=== PATIENT | male | born 1980 | race Caucasian/White ===

== ENCOUNTER 2017-05-05 09:20 | Inpatient (IN) | payer OTHER ==
[~2017-05-05] VITALS: Ht 177.8 cm; Wt 87.0 kg
[2017-05-05] MEDS ORDERED: MoRPHine SULFATE 4 MG/ML 1 ML CARP\\VIAL IV STA (09:46)
[2017-05-05] MEDS ORDERED: SODIUM CHLORIDE 0.9% 1000ML 1,000 ML IV STA ×2 (09:46)
[2017-05-05] MEDS ORDERED: ONDANSETRON INJ 2 MG/ML 2 ML VIAL IV STA (09:46)
[2017-05-05 09:57] LABS: BASO % 0.4 %; BASO ABS # 0.03 K/uL (0-0.2); COMPLETE YES; EOS % 1.8 %; HEMATOCRIT 44.2 % (42-52); IG% 0.4 %; LYMPH % 31.8 %; LYMPH ABS # 2.51 K/uL (1.2-3.4); MEAN CELL VOLUME 88.4 fL (80-100); MEAN CORPUSCULAR HEMOGLOBIN 30.4 pg (25-34); MEAN CORPUSCULAR HGB CONC 34.4 g/dl (32-36); MEAN PLATELET VOLUME 9.6 fL (7.4-10.4); MONO % 12.4 %; NEUT % 53.2 %; PLATELET COUNT 262 K/uL (130-400)
[2017-05-05] MEDS ORDERED: RANITIDINE HCL 50 MG/100 ML D5W IV STA (10:01)
[2017-05-05] MEDS ORDERED: GI COCKTAIL PO (10:05)
[2017-05-05] MEDS ORDERED: ASPCH81X PO (10:05)
[2017-05-05 10:09] LABS: BUN/CREATININE RATIO 16.8 (10-20); CALCIUM 8.8 mg/dl (8.5-10.1); POTASSIUM 4.2 mmol/L (3.5-5.1)
[2017-05-05 10:12] LABS: ALB/GLOB RATIO 1.2 (0.9-2)
--- NOTE | 2017-05-05 10:30 | DIAGNOSTIC IMAGING REPORT ---
ABDOMEN 2VIEW W/PA CHEST RTN CLINICAL HISTORY: Epigastric pain COMPARISON STUDY: No previous studies for comparison. FINDINGS: The erect chest reveals no free air. There is no focal pulmonary consolidation. Erect and supine views the abdomen reveal no abnormally dilated loops of large or small bowel. There are no transition zone to indicate bowel obstruction. IMPRESSION: No evidence of bowel obstruction. No evidence of free air. Electronically signed by: Say House M.D. 05/05/2017 10:28 AM Dictated Date/Time: 05/05/2017 10:28 AM
[2017-05-05 11:24] LABS: URINE APPEARANCE CLEAR (CLEAR); URINE BILIRUBIN NEG (NEG); URINE COLOR YELLOW; URINE NITRITE NEG (NEG); URINE SPECIFIC GRAVITY 1.025 (1.000-1.030); UROBILINOGEN NEG (NEG)
[2017-05-05 11:27] LABS: MANUAL MICROSCOPIC REQUIRED? NO; REVIEW REQ? NO
[2017-05-05] MEDS ORDERED: OPTIRAY 320 IV PRN (11:45)
--- NOTE | 2017-05-05 12:06 | DIAGNOSTIC IMAGING REPORT ---
CT ABD/PELVIS IV CONTRAST ONLY CLINICAL HISTORY: UPPER ABD PAIN COMPARISON STUDY: None. TECHNIQUE: Following the IV administration of 92 mL of Optiray-320, CT scan of the abdomen and pelvis was performed from the lung bases to the proximal femurs. Images are reviewed in the axial, sagittal, and coronal planes. IV contrast was administered without complication. A dose lowering technique was utilized adhering to the principles of ALARA. CT DOSE: 419.13 mGy.cm FINDINGS: Lower chest: There are mild basilar atelectatic changes Liver: The contrast-enhanced liver is normal in size, contour, and attenuation. There is no intrahepatic biliary ductal dilatation. The hepatic veins and portal veins are patent. Gallbladder: There is a calcified gallstone. There is gallbladder wall thickening/pericholecystic fluid. Ultrasound follow-up could be obtained as deemed clinically indicated. Considered Spleen: Normal in size and attenuation. Pancreas: Unremarkable. Adrenal glands: Unremarkable. Kidneys: There is a 13 mm right renal cyst. No solid renal masses are visualized. There is no hydronephrosis. Bowel: There are no transition zones indicate bowel obstruction. The appendix appears normal. There is no acute diverticulitis. Peritoneum: There is no intraperitoneal free air or abdominal ascites. Vasculature: The abdominal aorta is normal in course and caliber. Adenopathy: None. Pelvic viscera: The bladder, and pelvic viscera are unremarkable. Skeletal structures: No destructive osseous lesions are seen. IMPRESSION: 1. Cholelithiasis with gallbladder wall thickening versus pericholecystic fluid. Correlation with a gallbladder ultrasound could be obtained as deemed clinically indicated 2. No evidence of bowel obstruction. No evidence of free air 3. Normal appendix 4. No evidence of acute diverticulitis Electronically signed by: Say House M.D. 05/05/2017 12:04 PM Dictated Date/Time: 05/05/2017 12:01 PM
--- NOTE | 2017-05-05 13:28 | DIAGNOSTIC IMAGING REPORT ---
GALLBLADDER-ABD LIMITED HISTORY: 36 years-old Male acute upper abdominal pain. This is a follow-up exam of a CT which showed gallbladder wall thickening or pericholecystic fluid. COMPARISON: CT abdomen and pelvis 05/05/2017 TECHNIQUE: Multiple real-time sonographic images of the abdominal right upper quadrant were obtained assessing grayscale appearance and color flow. FINDINGS: Pancreas is obscured by bowel gas. The gallbladder parenchyma appears mildly echogenic with poor through transmission measuring up to 17.3 cm. Gallbladder wall is thickened measuring up to 0.5 cm. Multiple stones are seen within the gallbladder lumen, one of which measures up to 0.8 cm and is nonmobile within the region of the gallbladder neck. Additionally, there appears to be one that is adherent to nondependent bladder wall. There is trace pericholecystic edema. Sonographic Saravia's sign was not reported. The common bile duct is upper limits of normal, 6 mm. The imaged right kidney appears unremarkable. IMPRESSION: 1. Cholelithiasis with gallbladder wall thickening and pericholecystic edema suggests acute cholecystitis with nonmobile gallstone within the gallbladder neck. 2. Common bile duct measures within the upper limits of normal at 6 mm without obstructing stone identified. 3. Increased echogenicity of the hepatic parenchyma suggests fatty infiltration. The above report was generated using voice recognition software. It may contain grammatical, syntax or spelling errors. Electronically signed by: Zeus Warner M.D. 05/05/2017 1:27 PM Dictated Date/Time: 05/05/2017 1:23 PM
--- NOTE | 2017-05-05 15:37 | History and Physical ---
History & Physical Date & Time of Service: May 05, 2017 at 15:28 Chief Complaint: Chest/Back Primary Care Physician: No Doctor, Assigned History of Present Illness Source: patient This is a 36YO with right upper abdominal pain 2 days. He was seen in [place] ED Monday night and discharged. The pain radiated to his back. He has had associated nausea and vomiting. His bowel movements have been normal without diarrhea. He denies any urinary symptoms. He denies any upper chest pain, cough, wheezing or shortness of breath. He was begun on antacids and did well till pain returned today. US shows acute cholecystitis. Past Medical/Surgical History Medical history- negative Surgical Problems: (1) [place] teeth extracted Status: Resolved Social History Smoking Status: Never Smoker Smokeless Tobacco Use: No Alcohol Use: socially Drug Use: none Marital Status: Housing status: lives with family Occupational Status: employed Allergies Coded Allergies: No Known Allergies (Unverified , 05/05/17) Home Medications Scheduled Aspirin (Aspirin Chewable), 4 TABS PO UD [Gi Cocktail], 1 DOSE PO UD Review of Systems Constitutional: No fever, No chills, No sweats, No weight loss, No weakness Eyes: No worsening of vision, No eye pain, No redness, No discharge, No diplopia ENT: No hearing loss, No sore throat, No trouble swallowing Respiratory: No cough, No sputum, No shortness of breath Cardiovascular: No chest pain, No edema, No palpitations Abdomen: + pain, + nausea, No diarrhea, No constipation, No GI bleeding Musculoskeletal: No swelling, No calf pain Genitourinary - Male: No hematuria, No urinary hesitancy Neurologic: No memory loss, No numbness/tingling Psychiatric: No depression symptoms, No anxiety, No substance abuse Endocrine: No fatigue, No excessive urination Hematologic / Lymphatic: No abnormal bleeding/bruising, No swollen lymph nodes Integumentary: No rash, No new/changing skin lesions, No color change, No bleeding Allergic / Immunologic: No environmental allergies, No food allergies Physical Exam Vital Signs Date Time Temp Pulse Resp B/P (MAP) Pulse Ox O2 Delivery O2 Flow Rate FiO2 05/05/17 15:25 53 18 131/91 96 05/05/17 14:43 64 05/05/17 13:47 49 16 132/65 98 Room Air 05/05/17 12:28 144/76 144/96 05/05/17 12:20 54 21 98 05/05/17 12:03 134/92 05/05/17 11:31 124/86 05/05/17 11:20 48 16 96 05/05/17 11:01 137/83 05/05/17 11:00 48 20 150/92 96 Room Air 05/05/17 10:52 150/92 05/05/17 10:50 49 23 96 05/05/17 10:22 147/98 05/05/17 10:22 49 16 147/98 98 Room Air 05/05/17 09:50 53 17 05/05/17 09:43 57 05/05/17 09:24 36.8 52 20 142/91 96 Room Air General Appearance: WD/WN, no apparent distress Head: normocephalic, atraumatic Eyes: normal inspection, PERRL, EOMI, sclerae normal ENT: normal ENT inspection Neck: supple, no adenopathy, thyroid normal, trachea midline Respiratory/Chest: chest non-tender, lungs clear, normal breath sounds Cardiovascular: regular rate, rhythm, no gallop, no murmur Abdomen/GI: normal bowel sounds, soft, no organomegaly, no pulsatile mass, + tenderness Genitourinary - Male: normal male genitalia, no urethral discharge Back: normal inspection, no CVA tenderness, no muscle spasm Extremities/Musculoskelatal: normal inspection, no calf tenderness, no pedal edema, non-tender Neurologic/Psych: no motor/sensory deficits, alert, normal mood/affect, oriented x 3 Skin: normal color, warm/dry, no rash Lymphatic: no adenopathy Diagnostics Laboratory Results Results Past 24 Hours Test 05/05/17 09:35 05/05/17 11:05 Range/Units White Blood Count 7.90 4.8-10.8 K/uL Red Blood Count 5.00 4.7-6.1 M/uL Hemoglobin 15.2 14.0-18.0 g/dL Hematocrit 44.2 42-52 % Mean Corpuscular Volume 88.4 80-100 fL Mean Corpuscular Hemoglobin 30.4 25-34 pg Mean Corpuscular Hemoglobin Concent 34.4 32-36 g/dl Platelet Count 262 130-400 K/uL Mean Platelet Volume 9.6 7.4-10.4 fL Neutrophils (%) (Auto) 53.2 % Lymphocytes (%) (Auto) 31.8 % Monocytes (%) (Auto) 12.4 % Eosinophils (%) (Auto) 1.8 % Basophils (%) (Auto) 0.4 % Neutrophils # (Auto) 4.21 1.4-6.5 K/uL Lymphocytes # (Auto) 2.51 1.2-3.4 K/uL Monocytes # (Auto) 0.98 0.11-0.59 K/uL Eosinophils # (Auto) 0.14 0-0.5 K/uL Basophils # (Auto) 0.03 0-0.2 K/uL RDW Standard Deviation 42.3 36.4-46.3 fL RDW Coefficient of Variation 13.1 11.5-14.5 % Immature Granulocyte % (Auto) 0.4 % Immature Granulocyte # (Auto) 0.03 0.00-0.02 K/uL Sodium Level 143 136-145 mmol/L Potassium Level 4.2 3.5-5.1 mmol/L Chloride Level 112 98-107 mmol/L Carbon Dioxide Level 28 21-32 mmol/L Anion Gap 3.0 3-11 mmol/L Blood Urea Nitrogen 17 7-18 mg/dl Creatinine 1.00 0.60-1.40 mg/dl Est Creatinine Clear Calc Drug Dose 107.5 ml/min Estimated GFR () 113.3 Estimated GFR (Non- 97.8 BUN/Creatinine Ratio 16.8 10-20 Random Glucose 93 70-99 mg/dl Calcium Level 8.8 8.5-10.1 mg/dl Total Bilirubin 0.3 0.2-1 mg/dl Aspartate Amino Transf (AST/SGOT) 17 15-37 U/L Alanine Aminotransferase (ALT/SGPT) 54 12-78 U/L Alkaline Phosphatase 92 45-117 U/L Total Creatine Kinase 73 39-308 U/L Creatine Kinase MB < 0.5 0.5-3.6 ng/ml Creatine Kinase MB Ratio 0-3.0 Troponin I < 0.015 0-0.045 ng/ml Total Protein 7.2 6.4-8.2 gm/dl Albumin 3.9 3.4-5.0 gm/dl Globulin 3.3 2.5-4.0 gm/dl Albumin/Globulin Ratio 1.2 0.9-2 Lipase 135 73-393 U/L Urine Color YELLOW Urine Appearance CLEAR CLEAR Urine pH 7.0 4.5-7.5 Urine Specific [place] 1.025 1.000-1.030 Urine Protein NEG NEG Urine Glucose (UA) NEG NEG Urine Ketones NEG NEG Urine Occult Blood NEG NEG Urine Nitrite NEG NEG Urine Bilirubin NEG NEG Urine Urobilinogen NEG NEG Urine Leukocyte Esterase NEG NEG Diagnostic Radiology GALLBLADDER-ABD LIMITED HISTORY: 36 years-old Male acute upper abdominal pain. This is a follow-up exam of a CT which showed gallbladder wall thickening or pericholecystic fluid. COMPARISON: CT abdomen and pelvis 05/05/2017 TECHNIQUE: Multiple real-time sonographic images of the abdominal right upper quadrant were obtained assessing grayscale appearance and color flow. FINDINGS: Pancreas is obscured by bowel gas. The gallbladder parenchyma appears mildly echogenic with poor through transmission measuring up to 17.3 cm. Gallbladder wall is thickened measuring up to 0.5 cm. Multiple stones are seen within the gallbladder lumen, one of which measures up to 0.8 cm and is nonmobile within the region of the gallbladder neck. Additionally, there appears to be one that is adherent to nondependent bladder wall. There is trace pericholecystic edema. Sonographic Saravia's sign was not reported. The common bile duct is upper limits of normal, 6 mm. The imaged right kidney appears unremarkable. IMPRESSION: 1. Cholelithiasis with gallbladder wall thickening and pericholecystic edema suggests acute cholecystitis with nonmobile gallstone within the gallbladder neck. 2. Common bile duct measures within the upper limits of normal at 6 mm without obstructing stone identified. 3. Increased echogenicity of the hepatic parenchyma suggests fatty infiltration. The above report was generated using voice recognition software. It may contain grammatical, syntax or spelling errors. Impression Assessment and Plan Acute cholecystitis -IVF -IV abxc -to OR in AM for lap ciaran ASA Classification: ASA Class I Level of Care Med/Surg Resuscitation Status FULL RESUSCITATION VTE Prophylaxis VTE Risk Assessment Done? Y/N: Yes Risk Level: Low Given or contraindicated: SCD's
--- NOTE | 2017-05-05 15:44 | EMERGENCY ROOM VISIT NOTE ---
History First contact with patient: :29 Chief Complaint: CHEST PAIN Stated Complaint: CHEST/BACK Nursing Triage Summary: Patient presents with c/o chest pain for the last several days Was evaluated by the [facility] last night and told that "it was pulled muscles in my chest" Patient states he has pain from side to side across his lower chest and into his back States pain causes nausea and he has vomited x 1 History of Present Illness Patient is an otherwise healthy 36-year-old white male who presents to the emergency department for evaluation of lower chest/upper abdominal pain 2 days. He states that the pain started Monday evening. It woke him from sleep. He states it is a burning pain, located in the left upper quadrant that radiates towards the right upper quadrant. He also feels pain through to his back. He states that he paced the house for about an hour, at one point he vomited because the pain was so severe. He felt a little bit short of breath when he had the significant pain. He reports eating a sandwich that day, had roast beef for dimmer and had one beer that evening. He felt a little bit better in the morning, and went to work, but his symptoms persisted which prompted him to go to the [facility] emergency department last evening. He reports having laboratory studies and a chest x-ray, and was told that it was "pulled muscles." He felt okay when he went home, but the pain returned again this morning. He had a breakfast sandwich today, thinking that eating would help with his pain, but it didn't. He presently rates his discomfort and 8/10. He felt nauseous today but did not vomit. Bowel movements have been normal without diarrhea, moved his bowels this morning. He denies any urinary symptoms. He denies any upper chest pain, cough, wheezing or shortness of breath. Pain is not pleuritic. He drinks alcohol occasionally, denies excessive caffeine intake, no regular NSAIDs, and the patient does not smoke. He does not have a history of any GI issues, no personal or family history of gallbladder disease. Review of Systems Review of systems as per HPI. All other systems reviewed were negative. 10 systems reviewed. Past Medical/Surgical History Medical Problems: (1) No Known Active Medical Problems Surgical Problems: (1) [place] teeth extracted The patient has no old records at this facility for review. Social History Smoking Status: Never Smoker Alcohol Use: occasionally Marital Status: Housing Status: lives with family Occupation Status: employed Current/Historical Medications Scheduled Aspirin (Aspirin Chewable), 4 TABS PO UD [Gi Cocktail], 1 DOSE PO UD Physical Exam Vital Signs Date Time Temp Pulse Resp B/P (MAP) Pulse Ox O2 Delivery O2 Flow Rate FiO2 05/05/17 15:25 53 18 131/91 96 05/05/17 14:43 64 05/05/17 13:47 49 16 132/65 98 Room Air 05/05/17 12:28 144/76 144/96 05/05/17 12:20 54 21 98 05/05/17 12:03 134/92 05/05/17 11:31 124/86 05/05/17 11:20 48 16 96 05/05/17 11:01 137/83 05/05/17 11:00 48 20 150/92 96 Room Air 05/05/17 10:52 150/92 05/05/17 10:50 49 23 96 05/05/17 10:22 147/98 05/05/17 10:22 49 16 147/98 98 Room Air 05/05/17 09:50 53 17 05/05/17 09:43 57 05/05/17 09:24 36.8 52 20 142/91 96 Room Air Physical Exam CONSTITUTIONAL: Patient is an uncomfortable appearing 36-year-old white male who is awake and alert and in mild distress due to his stated complaint. EYES: Pupils equal, round, reactive to light and accommodation. EOMs intact without nystagmus. Sclera are anicteric. ENT: Tympanic membranes intact, with normal landmarks. External canals are clear. Oral and nasopharynx are clear. Mucous membranes are moist, no lesions , tongue and gums appear normal. CARDIOVASCULAR: Regular rate and rhythm, with normal S1 and S2, no murmur or gallop or rub is heard. No carotid bruits auscultated. No JVD. Peripheral pulses easily palpable. RESPIRATORY: Breath sounds equal and clear to auscultation without wheezes, rales, or rhonchi heard. Full and equal chest expansion without accessory muscle use or retractions. ABDOMEN: Bowel sounds are present. Abdomen is soft, nondistended, slightly tender to palpation in the left upper quadrant, epigastric and right upper quadrant, without guarding, rebound or rigidity. Negative Saravia sign. No pain over McBurney's point. INTEGUMENTARY: No lesions or rash, normal skin turgor. LYMPH: No lymphadenopathy. Medical Decision & Procedures ER Provider Diagnostic Interpretation: GALLBLADDER-ABD LIMITED HISTORY: 36 years-old Male acute upper abdominal pain. This is a follow-up exam of a CT which showed gallbladder wall thickening or pericholecystic fluid. COMPARISON: CT abdomen and pelvis 05/05/2017 TECHNIQUE: Multiple real-time sonographic images of the abdominal right upper quadrant were obtained assessing grayscale appearance and color flow. FINDINGS: Pancreas is obscured by bowel gas. The gallbladder parenchyma appears mildly echogenic with poor through transmission measuring up to 17.3 cm. Gallbladder wall is thickened measuring up to 0.5 cm. Multiple stones are seen within the gallbladder lumen, one of which measures up to 0.8 cm and is nonmobile within the region of the gallbladder neck. Additionally, there appears to be one that is adherent to nondependent bladder wall. There is trace pericholecystic edema. Sonographic Saravia's sign was not reported. The common bile duct is upper limits of normal, 6 mm. The imaged right kidney appears unremarkable. IMPRESSION: 1. Cholelithiasis with gallbladder wall thickening and pericholecystic edema suggests acute cholecystitis with nonmobile gallstone within the gallbladder neck. 2. Common bile duct measures within the upper limits of normal at 6 mm without obstructing stone identified. 3. Increased echogenicity of the hepatic parenchyma suggests fatty infiltration. The above report was generated using voice recognition software. It may contain grammatical, syntax or spelling errors. CT ABD/PELVIS IV CONTRAST ONLY CLINICAL HISTORY: UPPER ABD PAIN COMPARISON STUDY: None. TECHNIQUE: Following the IV administration of 92 mL of Optiray-320, CT scan of the abdomen and pelvis was performed from the lung bases to the proximal femurs. Images are reviewed in the axial, sagittal, and coronal planes. IV contrast was administered without complication. A dose lowering technique was utilized adhering to the principles of ALARA. CT DOSE: 419.13 mGy.cm FINDINGS: Lower chest: There are mild basilar atelectatic changes Liver: The contrast-enhanced liver is normal in size, contour, and attenuation. There is no intrahepatic biliary ductal dilatation. The hepatic veins and portal veins are patent. Gallbladder: There is a calcified gallstone. There is gallbladder wall thickening/pericholecystic fluid. Ultrasound follow-up could be obtained as deemed clinically indicated. Considered Spleen: Normal in size and attenuation. Pancreas: Unremarkable. Adrenal glands: Unremarkable. Kidneys: There is a 13 mm right renal cyst. No solid renal masses are visualized. There is no hydronephrosis. Bowel: There are no transition zones indicate bowel obstruction. The appendix appears normal. There is no acute diverticulitis. Peritoneum: There is no intraperitoneal free air or abdominal ascites. Vasculature: The abdominal aorta is normal in course and caliber. Adenopathy: None. Pelvic viscera: The bladder, and pelvic viscera are unremarkable. Skeletal structures: No destructive osseous lesions are seen. IMPRESSION: 1. Cholelithiasis with gallbladder wall thickening versus pericholecystic fluid. Correlation with a gallbladder ultrasound could be obtained as deemed clinically indicated 2. No evidence of bowel obstruction. No evidence of free air 3. Normal appendix 4. No evidence of acute diverticulitis ABDOMEN 2VIEW W/PA CHEST RTN CLINICAL HISTORY: Epigastric pain COMPARISON STUDY: No previous studies for comparison. FINDINGS: The erect chest reveals no free air. There is no focal pulmonary consolidation. Erect and supine views the abdomen reveal no abnormally dilated loops of large or small bowel. There are no transition zone to indicate bowel obstruction. IMPRESSION: No evidence of bowel obstruction. No evidence of free air. Laboratory Results 05/05/17 09:35 Red Blood Count 5.00, Mean Corpuscular Volume 88.4, Mean Corpuscular Hemoglobin 30.4, Mean Corpuscular Hemoglobin Concent 34.4, Mean Platelet Volume 9.6, Neutrophils (%) (Auto) 53.2, Lymphocytes (%) (Auto) 31.8, Monocytes (%) (Auto) 12.4, Eosinophils (%) (Auto) 1.8, Basophils (%) (Auto) 0.4, Neutrophils # (Auto ) 4.21, Lymphocytes # (Auto) 2.51, Monocytes # (Auto) 0.98, Eosinophils # (Auto ) 0.14, Basophils # (Auto) 0.03 05/05/17 09:35 Test 05/05/17 09:35 05/05/17 11:05 White Blood Count 7.90 K/uL (4.8-10.8) Red Blood Count 5.00 M/uL (4.7-6.1) Hemoglobin 15.2 g/dL (14.0-18.0) Hematocrit 44.2 % (42-52) Mean Corpuscular Volume 88.4 fL (80-100) Mean Corpuscular Hemoglobin 30.4 pg (25-34) Mean Corpuscular Hemoglobin Concent 34.4 g/dl (32-36) Platelet Count 262 K/uL (130-400) Mean Platelet Volume 9.6 fL (7.4-10.4) Neutrophils (%) (Auto) 53.2 % Lymphocytes (%) (Auto) 31.8 % Monocytes (%) (Auto) 12.4 % Eosinophils (%) (Auto) 1.8 % Basophils (%) (Auto) 0.4 % Neutrophils # (Auto) 4.21 K/uL (1.4-6.5) Lymphocytes # (Auto) 2.51 K/uL (1.2-3.4) Monocytes # (Auto) 0.98 K/uL (0.11-0.59) Eosinophils # (Auto) 0.14 K/uL (0-0.5) Basophils # (Auto) 0.03 K/uL (0-0.2) RDW Standard Deviation 42.3 fL (36.4-46.3) RDW Coefficient of Variation 13.1 % (11.5-14.5) Immature Granulocyte % (Auto) 0.4 % Immature Granulocyte # (Auto) 0.03 K/uL (0.00-0.02) Anion Gap 3.0 mmol/L (3-11) Est Creatinine Clear Calc Drug Dose 107.5 ml/min Estimated GFR () 113.3 Estimated GFR (Non- 97.8 BUN/Creatinine Ratio 16.8 (10-20) Calcium Level 8.8 mg/dl (8.5-10.1) Total Bilirubin 0.3 mg/dl (0.2-1) Aspartate Amino Transf (AST/SGOT) 17 U/L (15-37) Alanine Aminotransferase (ALT/SGPT) 54 U/L (12-78) Alkaline Phosphatase 92 U/L (45-117) Total Creatine Kinase 73 U/L (39-308) Creatine Kinase MB < 0.5 ng/ml (0.5-3.6) Creatine Kinase MB Ratio (0-3.0) Troponin I < 0.015 ng/ml (0-0.045) Total Protein 7.2 gm/dl (6.4-8.2) Albumin 3.9 gm/dl (3.4-5.0) Globulin 3.3 gm/dl (2.5-4.0) Albumin/Globulin Ratio 1.2 (0.9-2) Lipase 135 U/L (73-393) Urine Color YELLOW Urine Appearance CLEAR (CLEAR) Urine pH 7.0 (4.5-7.5) Urine Specific Velarde 1.025 (1.000-1.030) Urine Protein NEG (NEG) Urine Glucose (UA) NEG (NEG) Urine Ketones NEG (NEG) Urine Occult Blood NEG (NEG) Urine Nitrite NEG (NEG) Urine Bilirubin NEG (NEG) Urine Urobilinogen NEG (NEG) Urine Leukocyte Esterase NEG (NEG) Medications Administered Medications (Trade) Dose Ordered Sig/Madhuri Route Start Time Stop Time Status Last Admin Dose Admin Sodium Chloride 1,000 ml @ 999 mls/hr Q1H1M STAT IV 05/05/17 09:46 05/05/17 10:46 DC 05/05/17 09:55 999 MLS/HR Sodium Chloride 1,000 ml @ 250 mls/hr Q4H STAT IV 05/05/17 09:46 05/05/17 13:45 DC 05/05/17 10:20 250 MLS/HR Ondansetron HCl (Zofran Inj) 4 mg NOW STAT IV 05/05/17 09:46 05/05/17 09:50 DC 05/05/17 09:55 4 MG Morphine Sulfate (MoRPHine SULFATE INJ) 4 mg NOW STAT IV 05/05/17 09:46 05/05/17 09:50 DC 05/05/17 09:55 4 MG Ranitidine HCl (zANTac IV) 50 mg NOW STAT IV 05/05/17 10:01 05/05/17 10:02 DC 05/05/17 10:20 50 MG ECG Indication: abdominal pain ( ), chest pain Rate (beats per minute): 55 Rhythm: sinus with SA Findings: no acute ischemic change, no ectopy Comparison ECG Date: no prior available ED Course The patient was seen and assessed as above. IV lock was initiated and laboratory studies were collected. CBC with differential, CMP, lipase, cardiac enzymes and urinalysis were performed. He was hydrated with normal saline solution, medicated with Zofran 4 mg morphine 4 mg and ranitidine 50 mg IV. Acute abdominal series was obtained and was unremarkable. Laboratory studies demonstrated a normal white count at 7900, no left shift. H& H is normal. Electrolytes and renal functions are within normal limits. LFTs are not elevated. Cardiac enzymes are negative 1, lipase is not indicative of acute pancreatitis, and urinalysis is clear. Given his upper abdominal pain, CT scan of the abdomen pelvis with IV contrast was ordered. Findings are noted cholelithiasis with gallbladder wall thickening versus pericholecystic fluid, ultrasound was recommended. There was otherwise no evidence for bowel section, free air, appendicitis or diverticulitis. Gallbladder ultrasound confirmed cholelithiasis with gallbladder wall thickening. Cholecystic edema suggestive of acute cholecystitis. There was a non-mobile gallstone within the gallbladder neck., common duct measured upper limits of normal at 6 mm without obstructing stone identified. The patient reported good relief of his pain with the IV medications, and did not require any additional medications while in the emergency department. Laboratory and diagnostic imaging studies were reviewed with the patient and his at length, and reviewed with attending physician. Consultation was placed with Dr. Ma with general surgery who evaluated the patient in the emergency department. Plan will be for laparoscopic cholecystectomy tomorrow. Please refer to admitting orders for further information. Differential diagnoses entertained including GERD, gastritis, esophagitis, peptic ulcer disease, acute pancreatitis, acute cholecystitis, cholelithiasis, biliary colic, ascending cholangitis, bowel obstruction, perforation, among others. Medical Decision See ED Course. Medication Reconcilliation Current Medication List: was personally reviewed by wv Blood Pressure Screening Patient's blood pressure: Elevated blood pressure Blood pressure disposition: Elevated BP felt to be situational Impression Primary Impression: Acute calculous cholecystitis Departure Information Dispostion Being Evaluated By Surgeon Referrals No Doctor, Assigned (PCP) Patient Instructions My [facility]
[2017-05-05] MEDS ORDERED: MoRPHine SULFATE 2 MG/ML CARP IV PRN (15:45)
[2017-05-05] MEDS ORDERED: ALUMINUM/MAGNESIUM/SIMETH (MAALOX MAX) 30 ML UDC PO PRN (15:45)
[2017-05-05] MEDS ORDERED: ONDANSETRON INJ 2 MG/ML 2 ML VIAL IV PRN (15:45)
[2017-05-05] MEDS ORDERED: ONDANSETRON INJ 2 MG/ML 2 ML VIAL IV SCH (15:45)
[2017-05-05] MEDS ORDERED: MAGNESIUM HYDROXIDE SUSP 30 ML UDC PO PRN (15:45)
[2017-05-05] MEDS ORDERED: ACETAMINOPHEN 325 MG TAB PO PRN (15:45)
[2017-05-05] MEDS ORDERED: ZOLPIDEM TARTRATE 5 MG TAB PO PRN (15:45)
[2017-05-05] MEDS ORDERED: MoRPHine SULFATE 4 MG/ML 1 ML CARP\\VIAL IV PRN (16:15)
[2017-05-05 17:00] VITALS: BP 132/92; PULSE 54; TEMP 37; O2SAT 96; Ht 177.8 cm; Wt 87.0 kg
[2017-05-05] MEDS: LACTATED RINGER'S 1000ML 1,000 ML IV SCH ×2 (17:11→23:29)
[2017-05-05] MEDS: AMPICILLIN/SULBACTAM SOD INJ 3,000 MG in SODIUM CHLORIDE 0.9% 100ML 100 ML IV SCH ×2 (18:05→23:29)
[2017-05-05 20:33] VITALS: BP 129/86; PULSE 54; TEMP 36.7; O2SAT 95
[2017-05-05] MEDS: FAMOTIDINE IV INJ 20 MG in DEXTROSE 5% 100ML 100 ML IV SCH (20:42)
[2017-05-05 23:13] VITALS: BP 127/83; PULSE 50; TEMP 36.5; O2SAT 95
[2017-05-06] VITALS (9 sets, daily range): BP systolic 119–149; BP diastolic 70–91; PULSE 55–77; TEMP 36.5–36.7; O2SAT 91–96
[2017-05-06] MEDS: AMPICILLIN/SULBACTAM SOD INJ 3,000 MG in SODIUM CHLORIDE 0.9% 100ML 100 ML IV SCH ×4 (05:34→23:16)
[2017-05-06] MEDS ORDERED: CEFAZOLIN IV 2,000 MG in DEXTROSE 5% 50ML 50 ML IV SCH (06:00)
[2017-05-06] MEDS ORDERED: CEFAZOLIN 2000 MG/60 ML D5W IV SCH (06:00)
[2017-05-06] MEDS ORDERED: BUPIVACAINE/EPINEPHRINE 0.5% MPF 1:200,000 10 ML VIAL ONE (06:59)
[2017-05-06] MEDS ORDERED: MIDAZOLAM HCL 1 MG/ML 2ML VIAL ONE (07:04)
[2017-05-06] MEDS ORDERED: DEXAMETHASONE SOD INJ 4 MG/ML VIAL ONE (07:04)
[2017-05-06] MEDS ORDERED: LIDOCAINE HCL 2% 2 ML VIAL (20MG/ML) ONE (07:04)
[2017-05-06] MEDS ORDERED: PROPOFOL IV EMULSION 10 MG/ML 20 ML VIAL IV ONE (07:04)
[2017-05-06] MEDS ORDERED: GLYCOPYRROLATE INJ 0.2 MG/ML VIAL ONE ×2 (07:04→08:07)
[2017-05-06] MEDS ORDERED: FENTANYL CITRATE INJ 50 MCG/1 ML 2 ML VIAL ONE (07:04)
[2017-05-06] MEDS ORDERED: NEOSTIGMINE METHYLSULFATE 5 MG/5 ML SYR ONE (07:04)
[2017-05-06] MEDS ORDERED: ONDANSETRON INJ 2 MG/ML 2 ML VIAL ONE (07:04)
[2017-05-06] MEDS ORDERED: ROCURONIUM BROMIDE 10 MG/ML 5 ML VIAL ONE (07:04)
--- NOTE | 2017-05-06 07:12 | History & Physical Bridge Note ---
H&P Re-Evaluation Bridge Note: I have examined the patient, reviewed the History & Physical and in the interval since the performance of the History & Physical I have noted the following changes of clinical significance: No changes noted
[2017-05-06] MEDS ORDERED: HYDROmorphone INJ 2 MG/ML SYR/VIAL ONE (07:45)
[2017-05-06] MEDS ORDERED: LARYING-O-JET KIT (LTA) ONE ×2 (08:07)
[2017-05-06] MEDS ORDERED: KETOROLAC TROMETHAMINE 30 MG/ML VIAL ONE (08:07)
[2017-05-06] MEDS ORDERED: FENTANYL CITRATE INJ 50 MCG/1 ML 2 ML VIAL IV PRN (08:15)
[2017-05-06] MEDS ORDERED: EpHEDrine SULFATE INJ 50 MG/ML AMP IV PRN (08:15)
[2017-05-06] MEDS ORDERED: HYDROmorphone INJ 1 MG/ML SYR IV PRN (08:15)
[2017-05-06] MEDS ORDERED: ONDANSETRON INJ 2 MG/ML 2 ML VIAL IV PRN (08:15)
[2017-05-06] MEDS ORDERED: ATROPINE SULFATE 0.1 MG/ML 5ML SYR IV PRN (08:15)
--- NOTE | 2017-05-06 08:21 | [facility] Post Operative Brief Note ---
Immediate Operative Summary Operative Date May 06, 2017. Pre-Operative Diagnosis Acute Cholecystitis Post-Operative Diagnosis Acute Cholecystitis Procedure(s) Performed Laproscopic Cholecystectomy Surgeon Dr. Ma [employer] Cook Surgeon(s) none Estimated Blood Loss 10 ml Findings Acute inflammation Specimens A. Gallbladder Drains none Anesthesia GETA w/marcaine Complication(s) None Disposition Recovery Room / PACU
--- NOTE | 2017-05-06 08:40 | OPERATIVE REPORT ---
DATE OF OPERATION: 05/06/2017 PREOPERATIVE DIAGNOSIS: Acute cholecystitis. POSTOPERATIVE DIAGNOSIS: Same. PROCEDURE PERFORMED: Laparoscopic cholecystectomy. SURGEON: Dr. Jordy Ma. TWILL CUTTER: None. ESTIMATED BLOOD LOSS: 10 mL. SPECIMENS: Gallbladder to pathology. COMPLICATIONS: None. DRAINS: None. ANESTHESIA: General endotracheal with 0.5% Marcaine with epinephrine local. INDICATION FOR PROCEDURE: This is a 36-year-old male who was admitted through the ER yesterday with 2 days' history of some right upper quadrant pain. He had an ultrasound done which showed findings consistent with acute cholecystitis. He had a normal common bile duct and normal LFTs. He was begun on IV fluids, IV antibiotics and will be taken to the OR this morning for laparoscopic cholecystectomy. We talked to him about the risk of an open procedure, common duct injury, retained common bile duct stone, postop bile leak, bleeding and wound problems. He understands this and wishes to proceed. DESCRIPTION OF PROCEDURE: The patient was taken to the OR and underwent excellent general endotracheal anesthesia. His abdomen was prepped and draped in normal sterile fashion. Transverse supraumbilical incision was made and dissection was taken down to identify his anterior fascia. Two Vicryls were placed in either side of midline. The midline was incised sharply. Keon trocar was then inserted. Good pneumoperitoneum achieved to 15 mmHg pressure. The patient was placed in head up and rolled to the left. Eleven subxiphoid and two 5 lateral ports were placed in normal fashion. The fundus of the gallbladder was grasped and retracted superiorly. The neck was grasped and retracted laterally. He had an obvious acute inflammation with some adhesions. These were taken down with sharp and blunt dissection. Cystic duct and cystic artery were identified and skeletonized. A medial and lateral window was created in the gallbladder and gallbladder fossa exposing also the gallbladder plate which constituted the critical view. Once this was seen, 3 clips were placed distally on the cystic duct, 1 proximally and the cystic duct was transected. Two clips were placed on the cystic artery, 1 distally in the cystic artery and cystic artery was transected. Electrocautery hook was then used to remove the gallbladder from gallbladder fossa. The gallbladder was sent for pathologic evaluation. There was a stone within the gallbladder that could be palpated. Pneumoperitoneum was reestablished. Abdomen was then irrigated out and suctioned to clear. Clips were well placed in the duct and artery. There were a couple raw areas on the gallbladder fossa which were cauterized. The ports were then removed. Pneumoperitoneum was decompressed. 0 Vicryl was used to close the fascial defect. 0.5% Marcaine with epinephrine local was used to create a local field block. Interrupted Vicryl was used to close the subQ and interrupted Vicryl was used to close the skin. Steri-Strips and benzoin were used to reinforce the incision. Sterile dressings were applied. The patient tolerated the procedure well without any complications, sent to postoperative recovery for a period of observation and discharged up to his room once he meets criteria. I attest to the content of the Intraoperative Record and any orders documented therein. Any exception s are noted below.
--- NOTE | 2017-05-06 09:30 | Anesthesiology Progress Note ---
Anesthesia Post Op Note Date & Time May 06, 2017 at 09:30 Vital Signs Pain Intensity: 0 Vital Signs Past 12 Hours Date Time Temp Pulse Resp B/P (MAP) Pulse Ox O2 Delivery O2 Flow Rate FiO2 05/06/17 09:20 36.2 52 18 134/83 95 Nasal Cannula 2 05/06/17 09:10 58 18 143/92 95 Nasal Cannula 2 05/06/17 09:00 72 18 142/94 96 Oxymask 10 05/06/17 08:50 56 14 142/91 96 Oxymask 10 05/06/17 08:42 36.2 66 18 150/80 97 Oxymask 10 05/06/17 07:10 36.7 58 14 119/84 (96) 96 Room Air 05/06/17 07:10 Room Air 05/05/17 23:25 Room Air 05/05/17 23:13 36.5 50 15 127/83 (98) 95 Room Air Notes Mental Status: alert / awake / arousable, participated in evaluation Pt Amnestic to Procedure: Yes Nausea / Vomiting: adequately controlled Pain: adequately controlled Airway Patency, RR, SpO2: stable & adequate BP & HR: stable & adequate Hydration State: stable & adequate Anesthetic Complications: no major complications apparent
[2017-05-06] MEDS: FAMOTIDINE IV INJ 20 MG in DEXTROSE 5% 100ML 100 ML IV SCH ×2 (09:57→20:35)
[2017-05-06] MEDS: LACTATED RINGER'S 1000ML 1,000 ML IV SCH ×3 (09:57→23:15)
[2017-05-06] MEDS: OXYCODONE/ACETAMINOPHEN 5-325 TAB PO PRN ×3 (11:56→20:39)
[2017-05-07 02:49] VITALS: BP 123/72; PULSE 59; TEMP 36.7; O2SAT 93
[2017-05-07] MEDS: AMPICILLIN/SULBACTAM SOD INJ 3,000 MG in SODIUM CHLORIDE 0.9% 100ML 100 ML IV SCH (05:33)
[2017-05-07 07:21] VITALS: BP 133/87; PULSE 52; TEMP 36.8; O2SAT 97
[2017-05-07] MEDS: LACTATED RINGER'S 1000ML 1,000 ML IV SCH (08:37)
[2017-05-07] MEDS: OXYCODONE/ACETAMINOPHEN 5-325 TAB PO PRN (08:37)
[2017-05-07] MEDS: FAMOTIDINE IV INJ 20 MG in DEXTROSE 5% 100ML 100 ML IV SCH (08:37)
--- NOTE | 2017-05-07 09:11 | Surgery Progress Note ---
Surgery Progress Note Date of Service May 07, 2017. Subjective Post OP Day: 1 + feeling well Objective Vital Signs: Date Time Temp Pulse Resp B/P (MAP) Pulse Ox O2 Delivery O2 Flow Rate FiO2 05/07/17 08:22 Room Air 05/07/17 07:21 36.8 52 16 133/87 (102) 97 Room Air 05/07/17 02:49 36.7 59 17 123/72 (89) 93 Room Air 05/06/17 23:15 Room Air 05/06/17 22:51 36.7 77 16 133/70 (91) 94 Room Air 05/06/17 19:30 Room Air 05/06/17 18:59 36.6 66 18 134/71 (92) 93 Room Air 05/06/17 15:39 36.6 58 17 143/85 (104) 91 Room Air 05/06/17 13:21 66 16 124/78 (93) 95 Room Air 05/06/17 11:50 36.6 64 17 145/91 (109) 92 Room Air 05/06/17 10:57 36.6 57 17 149/90 (109) 92 Room Air 05/06/17 10:22 36.5 57 17 136/91 (106) 93 Room Air 05/06/17 09:50 95 Nasal Cannula 2.0 05/06/17 09:50 36.7 55 16 143/90 (107) 95 Nasal Cannula 2.0 05/06/17 09:30 36.2 65 18 135/92 95 Nasal Cannula 2 05/06/17 09:20 36.2 52 18 134/83 95 Nasal Cannula 2 General Appearance: WD/WN, no apparent distress Head: normocephalic, atraumatic Abdomen: normal bowel sounds, non distended, soft, + tenderness Incision(s): clean, dry, intact Assessment & Plan s/p lap ciaran -doing well -discharge
[2017-05-07] MEDS ORDERED: OXYC-57 PO (09:12)
--- NOTE | 2017-05-07 09:14 | Discharge Instructions ---
Discharge Instructions Date of Service May 07, 2017. Admission Reason for Admission: Acute Cholecystitis Discharge Discharge Diagnosis / Problem: Acute cholecystitis Discharge Goals Goal(s): Therapeutic intervention Activity Recommendations Activity Limitations: per Instructions/Follow-up section Lifting Limitations: no more than 25 pounds Exercise/Sports Limitations: until after follow-up appointment May Resume Sexual Activity: when tolerated Shower/Bathe: no limitations Driving or Machine Use: resume 3 days after discharge (as long as not taking narcotics) . Instructions / Follow-Up Instructions / Follow-Up Anil; 2 weeks; [phone] Current Hospital Diet Patient's current hospital diet: Regular Diet Discharge Diet Recommended Diet: Regular Diet Procedures Procedures Performed: Laproscopic Cholecystectomy Pending Studies Studies pending at discharge: no Work Instructions Lifting Limitations: no more than 20 pounds Additional Instructions: No work till evaulated in clinic in 2 weeks Medical Emergencies . Who to Call and When: Medical Emergencies: If at any time you feel your situation is an emergency, please call 911 immediately. . Non-Emergent Contact Non-Emergency issues call your: Primary Care Provider, Surgeon Call Non-Emergent contact if: temperature is above 101.5, your pain is not controlled, your pain is worsening, your pain is unusual for you, your pain is concerning you, wound has increased redness, wound has increased pain, you have any medication questions . "Provider Documentation" section prepared by Jordy Ma. . VTE Core Measure Inpt VTE Proph given/why not?: SCD's [place] Drug Monitoring Program Search Results: patient reviewed within database
[2017-05-07 09:29] VITALS: BP 133/87; PULSE 52; TEMP 36.8; O2SAT 97
--- NOTE | 2017-05-07 10:33 | DISCHARGE SUMMARY ---
DIAGNOSIS: Acute cholecystitis. PROCEDURE PERFORMED: Laparoscopic cholecystectomy 05/06/2017. HISTORY OF PRESENT ILLNESS: This is a 36-year-old male who was admitted to the ER with acute right upper quadrant abdominal pain and underwent a workup in the ER which showed acute cholecystitis. He will be admitted on IV fluids, IV antibiotics and we will plan on doing a laparoscopic cholecystectomy. HOSPITAL COURSE: The patient on same day was admitted, put on IV fluids, IV antibiotics and taken to the OR on hospital day #2. He underwent uncomplicated laparoscopic cholecystectomy. He had an acute gallbladder and therefore was maintained on IV antibiotics postop. His diet and activity were advanced and he was discharged home on postoperative day #2. DISCHARGE MEDICATIONS: Percocet 1 tablet p.o. q. 4 hours p.r.n. pain, aspirin 81 mg daily. DIET: Regular as tolerated. ACTIVITIES: Nothing more than 20 pounds for 3 weeks. Follow up 2 weeks in my office.
== END 2017-05-07 10:00 | disposition home or self-care (01) | DRG 419 ==
LOC: C.EDB 09:22 → C.3E 15:44 → ENRESERV 15:59
PROVIDERS: ADMIT Surgery; ATTEND Surgery
PROC: 0FT44ZZ Resection of Gallbladder, Percutaneous Endoscopic Approach (ICD-10-PCS; principal; 2017-05-06 07:30)
DX: K80.00 Calculus of gallbladder with acute cholecystitis without obstruction (principal)